=== PATIENT | female | born 1930 | race American Indian/Alaskan Native ===

== ENCOUNTER 2021-10-28 14:51 | Emergency (ER) | payer MEDICARE ==
[2021-10-28] MEDS ORDERED: FUROSEMIDE 40 MG/4 ML INJ IV ONE (15:30)
--- NOTE | 2021-10-28 15:33 | Emergency Department Report ---
HPI - General Chief Complaint: Extremity Problem,Nontraumatic Time Seen by Provider: 10/28/21 15:24 - HPI HPI: Patient arrived via EMS from home complaining of bilateral lower extremity edema. The patient has had this for a while she says she used to be on a water pill but she is no longer on that. She denies shortness of breath nausea vomiting fever chills chest pain focal weakness or headache. Nothing makes it better nor worse other than elevating her lower extremities. It is actually better today than yesterday. ED Past Medical Hx - Past Medical History Hx Hypertension: Yes - Surgical History Past Surgical History?: Yes Additional Surgical History: Bilateral knee replacements - Family History Family history: no significant - Social History Smoking Status: Never Smoker Substance Use Type: None - Medications Home Medications: Home Medications Medication Instructions Recorded Confirmed Last Taken Type Furosemide [Lasix] 20 mg PO QDAY 3 Days #3 tablet 10/28/21 Unknown Rx ED Review of Systems ROS: Stated complaint: KNEE PAIN Other details as noted in HPI Other: All systems reviewed and negative. Physical Exam - Physical Exam Vital Signs: Vital Signs 10/28/21 14:59 Temperature 97.5 F L Pulse Rate 62 Respiratory 18 Rate Blood Pressure 144/76 O2 Sat by Pulse 96 Oximetry Physical Exam: Physical Exam: Constitutional: AAOX3. No acute distress. No diaphoresis. HENT: Normocephalic. Pupils equal and reactive. No throat edema or erythema. Neck: No neck rigidity or tenderness. Cardiovascular: Heart sounds: No murmur. Normal rate and regular rhythm. Pulses: Intact distal pulses. Lungs: No wheezing or rales. Chest wall: No tenderness. Abdominal: No distension. No mass/pulsatile mass. No abdominal tenderness, guarding nor rebound. Musculoskeletal: Normal range of motion. There is +2 pretibial edema, No calf TTP. Skin: Warm and dry. Neurological: Alert and oriented to person, place, and time. Psychiatric: Mood and affect normal. Normal cognition and memory. Normal judgement. ED Course Vital Signs 10/28/21 14:59 Temperature 97.5 F L Pulse Rate 62 Respiratory 18 Rate Blood Pressure 144/76 O2 Sat by Pulse 96 Oximetry - Reevaluation(s) Reevaluation #1: 10/28/21 17:10 The patient's laboratories were within normal limits other than elevated bicarb. She sees a diamond sorter for chronic lung disease. She does not seem to be in failure probably this is dependent edema. I will give her a small dose of Lasix to take for the next 3 days she will follow-up with her PCP. ED Medical Decision Making - Lab Data Result diagrams: 10/28/21 15:46 10/28/21 15:46 Critical care attestation.: If time is entered above; I have spent that time in minutes in the direct care of this critically ill patient, excluding procedure time. ED Disposition Clinical Impression: Dependent edema Disposition: 01 HOME / SELF CARE / HOMELESS Is pt being admited?: No Does the pt Need Aspirin: No Condition: Stable Instructions: Edema, Edema, [id number] Prescriptions: Furosemide [Lasix] 20 mg PO QDAY 3 Days #3 tablet Time of Disposition: 17:10 Print Language: PORTUGUESE
--- NOTE | 2021-10-28 16:07 | XRay Report ---
CHEST 1 VIEW INDICATION / CLINICAL INFORMATION: Chest Pain. COMPARISON: None available. FINDINGS: SUPPORT DEVICES: None. HEART / MEDIASTINUM: No significant abnormality. LUNGS / PLEURA: Mild pulmonary vascular congestion is present. Right basilar atelectasis. The left ronald ng base is obscured by the cardiac silhouette. Otherwise, the left lung is clear. No pneumothorax. ADDITIONAL FINDINGS: No significant additional findings. IMPRESSION: 1. Moderate cardiomegaly with mild pulmonary vascular congestion. 2. Right basilar atelectasis. Signer Name: Misty Rojas MD Signed: 10/28/2021 4:02 PM Workstation Name: [id number]
[2021-10-28 16:11] VITALS: BP 161/75
[2021-10-28 16:39] LABS: Basophils % (Auto) 0.6 % (0.0-1.8); Eosinophils # (Auto) 0.1 K/mm3 (0.0-0.4); Eosinophils % (Auto) 3.1 % (0.0-4.3); Hematocrit 29.7 % (30.3-42.9); Hemoglobin 9.1 gm/dl (10.1-14.3); Lymphocytes # (Auto) 1.3 K/mm3 (1.2-5.4); Lymphocytes % (Auto) 33.3 % (13.4-35.0); Mean Corpuscular HGB Conc 31 % (30-34); Mean Corpuscular Volume 89 fl (79-97); Monocytes # (Auto) 0.6 K/mm3 (0.0-0.8); Monocytes % (Auto) 14.5 % (0.0-7.3); Platelet Count 172 K/mm3 (140-440); Red Blood Count 3.36 M/mm3 (3.65-5.03); Red Cell Distribution Width 15.6 % (13.2-15.2)
[2021-10-28 16:59] LABS: Albumin 4.1 g/dL (3.9-5); Calcium 9.5 mg/dL (8.4-10.2)
== END 2021-10-28 22:48 | disposition home or self-care (01) ==
LOC: ED 14:51
DX: R60.0 Localized edema (principal); I10 Essential (primary) hypertension; Z98.890 Other specified postprocedural states
CPT/HCPCS: 36415; 71045; 80053; 83880; 84484; 85025; 96374; 99284; J1940